=== PATIENT | female | born 1995 | race Caucasian/White ===

== ENCOUNTER → 2020-04-24 | Day surgery (SDC) | payer OTHER ==
--- NOTE | 2020-04-26 08:14 | OP ---
DATE OF OPERATION: 04/24/2020 PREOPERATIVE DIAGNOSIS: Right breast mass 10 o'clock, 5 cm from the nipple. POSTOPERATIVE DIAGNOSIS: Right breast mass 10 o'clock, 5 cm from the nipple. PROCEDURE: Right breast ultrasound-guided core biopsy with clip placement. ANESTHESIA: Local. ATTENDING SURGEON: Rahul Belle MD ESTIMATED BLOOD LOSS: Minimal. COMPLICATIONS: None. PROCEDURE: Patient was made aware of the risks and benefits of the procedure and consented. She was placed in the supine position. Under sterile conditions with 2% lidocaine for local anesthesia, a small charlotte was made in the skin. Using a 13-gauge suction biopsy device via lateral approach under ultrasound guidance multiple cores were obtained and submitted to Pathology. Likewise, under ultrasound guidance a bow tie clip was placed into the biopsy region. Well tolerated by patient. Steri-Strip and a sterile bandage were applied. Will contact her with the results. RAHUL BELLE M.D. [id number]
--- NOTE | 2020-04-27 15:31 | PATH ---
Surgical Pathology Report Patient Name: DAI DAVIES Med. Rec. #: [id number] /Age/Gender: 1995 (Age: 24) / F Account: [id number] Location: [facility] Taken: 04/24/2020 Received: 04/24/2020 Reported: 04/27/2020 Physicians: Rahul Belle M.D. Specimen(s) Received RIGHT BREAST CORE BIOPSY 10N5 Clinical History Non-palpable lesion Ultrasound findings: Suspicious History of PASH Final Diagnosis BREAST, RIGHT, 10:00 5 CM FN, CORE BIOPSY: BREAST TISSUE SHOWING PSEUDOANGIOMATOUS STROMAL HYPERPLASIA (PASH), STROMAL FIBROSIS, FEW MICROCYSTS, COLUMNAR CELL CHANGE AND FEW CALCIFICATIONS IN ASSOCIATION WITH BENIGN GLANDULAR PARENCHYMA. Electronically Signed Nikkie Shah M.D. Gross Description Received in formalin labeled "right breast 10:00, 5 cmfn," are 6 mosher-yellow, cylindrical portions of fibroadipose tissue ranging from 1.4-1.7 cm in length and averaging 0.2 cm in diameter. The specimens are submitted in toto in 2 cassettes. Time to formalin fixation: < 1 minute Total formalin fixation time: Approximately 6 hours. DL/04/24/2020 saudi/04/24/2020
== END | disposition home or self-care (01) ==
LOC: FRADUS-SUR 12:34
PROVIDERS: ATTEND Surgery Surgical Oncology
PROC: 0HBT3ZX Excision of Right Breast, Percutaneous Approach, Diagnostic (ICD-10-PCS; principal; 2020-04-24)
DX: N60.11 Diffuse cystic mastopathy of right breast (principal); N60.31 Fibrosclerosis of right breast; N60.89 Other benign mammary dysplasias of unspecified breast; N64.89 Other specified disorders of breast; N63.11 Unspecified lump in the right breast, upper outer quadrant
CPT/HCPCS: 19083; 77065-TC; 87899; 88305-TC; A4648